=== PATIENT | male | born 2000 | race Caucasian/White ===

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

== ENCOUNTER 2022-05-23 19:59 | Emergency (ER) | payer OTHER ==
[~2022-05-23] VITALS: Ht 152.4 cm; Wt 52.2 kg
[2022-05-23 20:09] VITALS: BP_SYST 152
--- NOTE | 2022-05-23 20:56 | NUR ---
Patient to ER bed 04 to gown for evaluation. Side rails up.
[2022-05-23] MEDS ORDERED: IBUP-1969 PO (20:59)
--- NOTE | 2022-05-23 21:00 | NUR ---
Pt brought by self, A&Ox4, pt presents to ER with L shoulder pain after falling during hockey game, pt denies injuries, skin pink and warm, cap refill <3, VSS
--- NOTE | 2022-05-23 21:01 | NUR ---
Dr Edmonds evaluating patient at bedside
[2022-05-23 21:10] VITALS: BP_SYST 152
--- NOTE | 2022-05-23 21:11 | NUR ---
Patient given written and verbal discharge instructions and verbalizes understanding. ER MD discussed with patient the results and treatment provided. Patient in stable condition. ID arm band removed. Rx of Ibuprofen given. Patient educated on pain management and to follow up with PMD. Pain Scale 3/10 Opportunity for questions provided and answered. Medication side effect fact sheet provided.
== END 2022-05-23 21:10 | disposition home or self-care (01) ==
LOC: SED 19:59
DX: S43.402A Unspecified sprain of left shoulder joint, initial encounter (principal); Z79.899 Other long term (current) drug therapy; W09.8XXA Fall on or from other playground equipment, initial encounter; Y93.89 Activity, other specified; Y92.89 Other specified places as the place of occurrence of the external cause; Y99.8 Other external cause status
CPT/HCPCS: 73030; 99283